=== PATIENT | female | born 1970 | race Caucasian/White ===

== ENCOUNTER 2016-10-22 22:47 | Emergency (ER) | payer SELFPAY ==
[~2016-10-22] VITALS: Ht 162.6 cm; Wt 111.7 kg
[2016-10-22 23:27] LABS: HEMATOCRIT 41.7 % (36.0-46.0); MCH 30.9 PG (29.0-34.0); MCHC 34.1 G/DL (30.0-36.0); MCV 90.8 FL (83-99); MEAN PLAT.VOLUME 11.2 uM^3 (9.5-12.4); PLATELET COUNT 309 K/uL (156-360); RBC DIS.WIDTH-CV 12.9 % (11.8-14.6); RBC DIS.WIDTH-SD 42.1 % (39-53); RED BLOOD COUNT 4.59 M/uL (3.80-5.20); WHITE BLOOD COUNT 10.3 K/uL (4.1-10.2)
[2016-10-22 23:45] LABS: TROP-I INTERPRETATION NEGATIVE; TROPONIN-I < 0.01 ng/mL (0.0-0.30)
[2016-10-23 00:27] LABS: CHLORIDE 104 mEq/L (99-109); POTASSIUM 3.8 mEq/L (3.7-5.4); SODIUM 140 mEq/L (136-147)
[2016-10-23 00:29] LABS: GLUCOSE 85 mg/dL (70-99)
[2016-10-23 00:31] LABS: ANION GAP 10 MEQ/L (2-14)
[2016-10-23 00:34] LABS: UREA NITROGEN (BUN) 11 mg/dL (9-23)
[2016-10-23 00:38] LABS: GFR ESTIMATE (CALCULATED) > 59 mL/min/
[2016-10-23] MEDS ORDERED: LEVOTHY (03:10)
[2016-10-23] MEDS ORDERED: METOPROLOL (03:10)
[2016-10-23] MEDS ORDERED: PROTO (03:10)
[2016-10-23] MEDS ORDERED: CYMBALT (03:10)
[2016-10-23 03:11] VITALS: BP 1150/87
== END 2016-10-23 03:15 | disposition left against medical advice (07) ==
LOC: EME 22:47
DX: R07.9 Chest pain, unspecified (principal); I10 Essential (primary) hypertension; K21.9 Gastro-esophageal reflux disease without esophagitis; Z87.442 Personal history of urinary calculi
CPT/HCPCS: 71020; 80048; 84484; 85027; 93005; 99281; 99284